=== PATIENT | male | born 1990 | race Caucasian/White ===

== ENCOUNTER 2017-05-28 17:34 | Emergency (ER) | payer MEDICAID ==
[2017-05-28] MEDS ORDERED: DiphenhydrAMINE 50 mg/ml Inj IVP STA (18:22)
--- NOTE | 2017-05-28 18:33 | C.PDOC ---
History Of Present Illness Patient is a 26 y/o male who presents to the ED with a complaint of dizziness, nausea, and left-sided headache for the last 10 days. Patient notes headache radiates to the left eye, but denies any visual loss or contact lens use. Patient denies fever, abdominal pain, medication use, or recent travel. No other physical complaints at this time. Time Seen by Provider: 05/28/17 18:14 Chief Complaint (Nursing): Headache History Per: Patient History/Exam Limitations: no limitations Onset/Duration Of Symptoms: Days (10 days) Current Symptoms Are (Timing): Still Present Quality: Other (left-sided) Preceeding Symptoms: denies: Visual Disturbances Associated Symptoms: Nausea Recent travel outside of the [place]: No Past Medical History Reviewed: Historical Data, Nursing Documentation, Vital Signs Vital Signs: Last Vital Signs Temp 98 F 05/28/17 20:07 Pulse 80 05/28/17 20:07 Resp 14 05/28/17 20:07 BP 120/80 05/28/17 20:07 Pulse Ox 99 05/28/17 20:07 - Medical History PMH: No Chronic Diseases Surgical History: No Surg Hx Family History: States: No Known Family Hx - Social History Hx Tobacco Use: No Hx Alcohol Use: Yes Hx Substance Use: No - Immunization History Hx Tetanus Toxoid Vaccination: No Hx Influenza Vaccination: No Hx Pneumococcal Vaccination: No Review Of Systems Constitutional: Negative for: Fever Gastrointestinal: Positive for: Nausea. Negative for: Abdominal Pain Neurological: Positive for: Headache, Dizziness Physical Exam - Physical Exam Appears: Well Skin: Normal Color, Warm, Dry Head: Atraumatic, Normacephalic Eye(s): bilateral: Normal Inspection Oral Mucosa: Moist Chest: Symmetrical Cardiovascular: Rhythm Regular, No Murmur Respiratory: Normal Breath Sounds, No Rales, No Rhonchi, No Wheezing Gastrointestinal/Abdominal: Soft, No Tenderness Neurological/Psych: Oriented x3, Normal Speech, Normal Cognition ED Course And Treatment - Laboratory Results Result Diagrams: 05/28/17 18:37 05/28/17 18:37 O2 Sat by Pulse Oximetry: 100 (On RA) Pulse Ox Interpretation: Normal - CT Scan/US CT head Other Rad Studies (CT/US): Read By Radiologist, Radiology Report Reviewed CT/US Interpretation: EXAM: CT Head Without Intravenous Contrast. CLINICAL HISTORY: 26 years old, male; Pain; Headache; Headache not specified. TECHNIQUE : Axial computed tomography images of the head/brain without intravenous contrast. All CT scans at. this facility use one or more dose reduction techniques, viz.: automated exposure control; ma/kV. adjustment per patient size (including targeted exams where dose is matched to indication; i.e. head); . or iterative reconstruction technique. COMPARISON: No relevant prior studies available. FINDINGS: Brain: Right frontal hypodensity is non-specific and could reflect sequelae of migraine, trauma,. infection (including Lyme disease), demylination, chronic ischemic event, or other insult. No. hemorrhage. Ventricles: Unremarkable. No ventriculomegaly. Bones/joints: Unremarkable. No acute fracture. Soft tissues: Unremarkable. Sinuses: Unremarkable as visualized. No acute sinusitis. Mastoid air cells: Unremarkable as visualized. No mastoid effusion. IMPRESSION: Right frontal hypodensity is non-specific and could reflect sequelae of migraine, trauma, infection. (including Lyme disease), demylination, chronic ischemic event, or other insult. Thank you for allowing us to participate in the care of your patient. Dictated and Authenticated by: Anshu Springer MD. 05/28/2017 7:37 PM Eastern Time ([place] & [place]) Progress Note: Head CT, EKG, and UA ordered. Benadryl, antivert, and reglan ordered. Medical Decision Making Medical Decision Making: On re-eval, patient feels better. CT scan shows nonspecific right frontal lobe hypodensity and no ischemia. Patient advised to follow up with Dr. Horta in 2 days, and to return to hospital if symptoms worsen or progress. Information given to patient. Disposition Counseled Patient/Family Regarding: Studies Performed, Diagnosis, Need For Followup, Rx Given - Disposition Referrals: Ra Horta MD [Staff Provider] - Disposition: HOME/ ROUTINE Disposition Time: 19:48 Condition: STABLE Additional Instructions: follow up with Dr. Horta in 2 days call to make an appointment take copy of your ct scan report with you to your follow up appointment take medication as needed for dizziness return to ER if symptoms worsens or progress Prescriptions: Meclizine [Meclizine*] 25 mg PO TID PRN #15 tab PRN Reason: Dizziness Pseudoephedrine HCl [Sudafed] 30 mg PO TID PRN #12 tablet PRN Reason: Dizziness Instructions: Vertigo (a Type of Dizziness) Forms: [facility] (Turkish), General Discharge Instructions - Clinical Impression Clinical Impression: Dizziness - Scribe Statement The provider has reviewed the documentation as recorded by the Scribe Mini Roth All medical record entries made by the Scribe were at my direction and personally dictated by me. I have reviewed the chart and agree that the record accurately reflects my personal performance of the history, physical exam, medical decision making, and the department course for this patient. I have also personally directed, reviewed, and agree with the discharge instructions and disposition.
[2017-05-28 18:43] LABS: BASO # 0.1 K/uL (0.0-0.2); EOS # 0.2 K/uL (0.0-0.7); EOS % 1.9 % (0.0-4.0); HEMOGLOBIN 14.8 g/dL (12.0-18.0); LYMPH # 2.8 K/uL (1.0-4.3); LYMPH % 30.6 % (20.0-40.0); MEAN CELL VOLUME 77.6 fL (80.0-94.0); MEAN CORPUSCULAR HEMOGLOBIN 26.3 pg (27.0-31.0); MEAN CORPUSCULAR HGB CONC 33.9 g/dL (33.0-37.0); MEAN PLATELET VOLUME 7.7 fL (7.2-11.7); MONO # 0.4 K/uL (0.0-0.8); MONO % 4.9 % (0.0-10.0); NEUT # 5.6 K/uL (1.8-7.0); NEUT % 61.6 % (50.0-75.0); RBC 5.65 Mil/uL (4.40-5.90); RED CELL DISTRIBUTION WIDTH 13.6 % (11.5-14.5); WHITE BLOOD COUNT 9.1 K/uL (4.8-10.8)
[2017-05-28 18:52] LABS: ALB/GLOB RATIO 1.8 (1.0-2.1); ALBUMIN 4.6 g/dL (3.5-5.0); ALT/SGPT 26 U/L (21-72); AST/SGOT 17 U/L (17-59); BLOOD UREA NITROGEN 14 mg/dL (9-20); CALCIUM 8.6 mg/dl (8.6-10.4); GFR AFRICAN-AMERICAN > 60; GFR NON-AFRICAN AMERICAN > 60
[2017-05-28 18:53] LABS: URINE BILIRUBIN NEGATIVE (NEGATIVE); URINE BLOOD NEGATIVE (NEGATIVE); URINE CLARITY Clear (Clear); URINE COLOR Colorless (YELLOW); URINE GLUCOSE (UA) NORMAL (Normal); URINE LEUKOCYTE ESTERASE NEG Leu/uL (Negative); URINE PROTEIN NEGATIVE (NEGATIVE); URINE UROBILINOGEN NORMAL mg/dL (0.2-1.0)
[2017-05-28] MEDS ORDERED: DiphenhydrAMINE 50 mg/ml Inj ONE (18:53)
[2017-05-28 20:08] VITALS: BP 120/80; PULSE 80; RESP 14; TEMP 98
[2017-05-28 21:20] VITALS: O2SAT 100
--- NOTE | 2017-05-29 10:08 | CT ---
PROCEDURE: CT HEAD WITHOUT CONTRAST. HISTORY: Headache COMPARISON: None available. TECHNIQUE: Axial computed tomography images were obtained through the head/brain without intravenous contrast. Radiation dose: Total exam DLP = 865.69 mGy-cm. This CT exam was performed using one or more of the following dose reduction techniques: Automated exposure control, adjustment of the mA and/or kV according to patient size, and/or use of iterative reconstruction technique. FINDINGS: HEMORRHAGE: No acute parenchymal, subarachnoid or extra-axial hemorrhage. Hemorrhage. BRAIN: There is a an ill-defined though somewhat elliptical shaped area of low attenuation in the right inferior mid frontal subcortical white matter of uncertain etiology. Rule out sequela of old ischemia, trauma, migraine headache, or post inflammatory/infectious etiologies. Atypical presentation of a demyelinating disease process not excluded. Ventricular and sulcal size are within range of normal for this patient's stated age. VENTRICLES: No obstructive hydrocephalus. CALVARIUM: Unremarkable. PARANASAL SINUSES: Unremarkable as visualized. No significant inflammatory changes. MASTOID AIR CELLS: Unremarkable as visualized. No inflammatory changes. OTHER FINDINGS: None. IMPRESSION: Small ill-defined area low attenuation right inferior/mid frontal subcortical white matter of uncertain etiology. See above discussion for differential diagnostic considerations. Followup pre and post-contrast MRI recommended. Preliminary report provided by overnight radiology service
== END 2017-05-28 20:08 | disposition home or self-care (01) ==
LOC: C.ER 17:34
DX: R42 Dizziness and giddiness (principal)
CPT/HCPCS: 70450; 80053; 81001; 85025; 96374; 96375; 99285; J1200; J2765